=== PATIENT | male | born 1995 | race Two or more races ===

== ENCOUNTER 2024-04-27 00:53 | Emergency (ER) | payer SELFPAY ==
[2024-04-27 01:07] VITALS: BP 116/76; PULSE 111; RESP 18; TEMP 98.8; BMI 23.8
[2024-04-27] MEDS ORDERED: diphenhydrAMINE HCL 25 MG CAPSULE (FP) PO ONE (01:09)
[2024-04-27] MEDS ORDERED: FAMOTIDINE 20 MG TABLET ONE (01:10)
[2024-04-27] MEDS ORDERED: DEXAMETHASONE 4 MG TABLET (FP) ONE (01:10)
[2024-04-27] MEDS: diphenhydrAMINE HCL 25 MG CAPSULE (FP) PO ONE (01:20)
[2024-04-27] MEDS: DEXAMETHASONE 4 MG TABLET (FP) PO ONE (01:20)
[2024-04-27] MEDS: FAMOTIDINE 20 MG TABLET PO ONE (01:21)
== END 2024-04-27 02:02 | disposition home or self-care (01) ==
LOC: FER 00:53
DX: F41.9 Anxiety disorder, unspecified (principal); R21 Rash and other nonspecific skin eruption; T37.5X5A Adverse effect of antiviral drugs, initial encounter
CPT/HCPCS: 99283-25